=== PATIENT | male | born 1940 | race Caucasian/White ===

== ENCOUNTER 2016-09-05 07:56 | Emergency (ER) | payer OTHER ==
[2016-09-05 08:10] VITALS: BP 160/80
--- NOTE | 2016-09-05 08:29 | UC ---
Laceration HPI - HPI Summary HPI Summary: The patient comes in today for: 1. Laceration. Onset: 1 hour ago. Palliative/provocative: Touching makes it worse. Quality: No pain. Region: Top of head. Severity: 0/10 Time: Constant. Associated symptoms: LOC: None. Event: He had a cabinet door open and as he came up, the top of his head hit the cabinet door. Tetanus: 2 years ago. * - History Of Current Complaint Chief Complaint: UCLaceration Stated Complaint: HEAD LACERATION Time Seen by Provider: 09/05/16 08:24 Hx Obtained From: Patient - Allergies/Home Medications Allergies/Adverse Reactions: Allergies Allergy/AdvReac Type Severity Reaction Status Date / Time Ezetimibe [From Vytorin] Allergy Unknown Verified 09/05/16 08:12 Reaction Details Simvastatin [From Vytorin] Allergy Unknown Verified 09/05/16 08:12 Reaction Details PMH/Surg Hx/FS Hx/Imm Hx Previously Healthy: No - BPH, Mohs surgery right hand, right nose Endocrine History Of: Reports: Dyslipidemia Denies: Diabetes, Thyroid Disease, Hyperthyroidism, Hypothyroidism Cardiovascular History Of: Reports: Cardiac Disorders - HEART DISEASE W/ BYPASS SURGERY, Hypertension Denies: Pacemaker/ICD, Myocardial Infarction, Congestive Heart Failure, Atrial Fibrillation, Deep Vein Thrombosis, Bleeding Disorders Respiratory History Of: Denies: COPD, Asthma GI/ History Of: Reports: Gastroesophageal Reflux, Kidney Stones Denies: Ulcer, Gastrointestinal Bleed, Gall Bladder Disease, Diverticulitis, Renal Disease, Urosepsis Neurological History Of: Denies: TIA, CVA, Dementia, Seizures, Migraine Psychological History Of: Denies: Anxiety, Depression, Bipolar Disorder, Schizophrenia, Post Traumatic Stress Disorder Cancer History Of: Denies: Lung Cancer, Colorectal Cancer, Breast Cancer, Prostate Cancer, Cervical Cancer Other History Of: Anticoagulant Therapy - "Low dose aspirin every day." Negative For: HIV, Hepatitis B, Hepatitis C - Surgical History Surgical History: Yes Surgery Procedure, Year, and Place: cataract lens implant bilat 10/2011. quintuple bypass 05/09. 2 coronary stents 05/2002 - Family History Known Family History: Positive: Cardiac Disease - son Negative: Hypertension, Diabetes - Social History Occupation: Retired Alcohol Use: Rare Alcohol Amount: 1-2/day Substance Use Type: None Smoking Status (MU): Former Smoker Household Exposure Type: Cigarettes - Immunization History Most Recent Influenza Vaccination: 2016 Most Recent Tetanus Shot: 2014 Most Recent Pneumonia Vaccination: 2009 Review of Systems Constitutional: Negative Skin: Negative Eyes: Negative ENT: Negative Respiratory: Negative Cardiovascular: Negative Gastrointestinal: Negative Genitourinary: Negative Motor: Negative All Other Systems Reviewed And Are Negative: Yes Physical Exam Triage Information Reviewed: Yes Appearance: Well-Appearing, No Pain Distress, Well-Nourished Vital Signs: Initial Vital Signs Temp 97.7 F 09/05/16 08:06 Pulse 62 09/05/16 08:06 Resp 14 09/05/16 08:06 BP 160/80 09/05/16 08:06 Pulse Ox 99 09/05/16 08:06 Vital Signs Reviewed: Yes Eyes: Positive: Conjunctiva Clear. Negative: Discharge ENT: Positive: Hearing grossly normal. Negative: Pharyngeal erythema, Nasal congestion, Nasal drainage, TM bulging, TM dull, TM red, Tonsillar swelling, Tonsillar exudate Dental: Negative: Gross Decay/Caries @, Dental Fracture @ Neck: Positive: Supple, Nontender, No Lymphadenopathy. Negative: Nuchal Rigidity Respiratory: Positive: Lungs clear, No respiratory distress, No accessory muscle use. Negative: Crackles, Wheezing Cardiovascular: Positive: RRR, No Murmur Abdomen Description: Positive: Nontender, No Organomegaly, Soft. Negative: Distended, Guarding Musculoskeletal: Positive: Strength Intact, ROM Intact, No Edema Neurological: Positive: Alert, Muscle Tone Normal Psychological: Positive: Age Appropriate Behavior. Negative: Consolable Skin: Positive: Other - He has a 2 cm laceration on the top of his head. No active bleeding. Laceration Repair - Laceration Repair 1 Description: Linear Laceration Size After Repair: Length (cm) - 2, Width (mm) - 2, Depth (mm) - 2 Modified For Repair: No Closure Material: Skin Adhesive, SteriStrips Laceration Course/Dx - Course/Dx Course Of Treatment: Patient had laceration closed by skin adhesive and steristrips. - Differential Dx - Laceration/Wound Provider Diagnoses: Laceration of the top of the head. Discharge - Discharge Plan Condition: Stable Disposition: HOME Patient Education Materials: Laceration (ED), Skin Adhesive Care (ED), Steristrips (ED) Referrals: Jack Fitzgerald MD [Primary Care Provider] - 1 Week (Please see your primary care provider later next week to see how well you are doing and to check your blood pressure which was slightly high while in the office today.)
[2016-09-05] MEDS ORDERED: Benzoin Compound STICK ONE (08:54)
== END 2016-09-05 09:11 | disposition home or self-care (01) ==
LOC: UCEAST 07:56
DX: S01.91XA Laceration without foreign body of unspecified part of head, initial encounter (principal); E78.5 Hyperlipidemia, unspecified; I25.10 Atherosclerotic heart disease of native coronary artery without angina pectoris; Z95.1 Presence of aortocoronary bypass graft; I10 Essential (primary) hypertension; K21.9 Gastro-esophageal reflux disease without esophagitis; Z87.442 Personal history of urinary calculi; Z87.891 Personal history of nicotine dependence; W22.8XXA Striking against or struck by other objects, initial encounter; Y93.9 Activity, unspecified; Y92.9 Unspecified place or not applicable
CPT/HCPCS: 12001; 12011; 99211; 99212; G0463

== ENCOUNTER 2016-09-25 15:44 | Emergency (ER) | payer OTHER ==
[2016-09-25 16:21] VITALS: BP 146/73
--- NOTE | 2016-09-25 17:10 | UC ---
Ear Complaint HPI - HPI Summary HPI Summary: Has hearing aide part stuck in L ear, facility maintenance helper didn't want to remove it because it was too deep. Denies pain or drainage. - History of Current Complaint Chief Complaint: UCEar Stated Complaint: F.O. IN EAR Time Seen by Provider: 09/25/16 16:58 Hx Obtained From: Patient Onset/Duration: Sudden Onset Severity Initially: Mild Severity Currently: Mild Aggravating Factors: FB Associated Signs/Symptoms: Negative: Discharge, Hearing Loss, URI Symptoms - Allergies/Home Medications Allergies/Adverse Reactions: Allergies Allergy/AdvReac Type Severity Reaction Status Date / Time Ezetimibe [From Vytorin] Allergy Unknown Verified 09/25/16 16:22 Reaction Details Ramipril Allergy Unknown Verified 09/25/16 16:22 Reaction Details Simvastatin [From Vytorin] Allergy Unknown Verified 09/25/16 16:22 Reaction Details PMH/Surg Hx/FS Hx/Imm Hx Endocrine History Of: Reports: Dyslipidemia Denies: Diabetes, Thyroid Disease, Hyperthyroidism, Hypothyroidism Cardiovascular History Of: Reports: Cardiac Disorders, Hypertension Denies: Pacemaker/ICD, Myocardial Infarction, Congestive Heart Failure, Atrial Fibrillation, Deep Vein Thrombosis, Bleeding Disorders Respiratory History Of: Denies: COPD, Asthma GI/ History Of: Reports: Gastroesophageal Reflux, Kidney Stones Denies: Ulcer, Gastrointestinal Bleed, Gall Bladder Disease, Diverticulitis, Renal Disease, Urosepsis Neurological History Of: Denies: TIA, CVA, Dementia, Seizures, Migraine Psychological History Of: Denies: Anxiety, Depression, Bipolar Disorder, Schizophrenia, Post Traumatic Stress Disorder Cancer History Of: Denies: Lung Cancer, Colorectal Cancer, Breast Cancer, Prostate Cancer, Cervical Cancer Other History Of: Anticoagulant Therapy - "Low dose aspirin every day." Negative For: HIV, Hepatitis B, Hepatitis C - Surgical History Surgical History: Yes Surgery Procedure, Year, and Place: cataract lens implant bilat 10/2011. quintuple bypass 05/09. 2 coronary stents 05/2002 - Family History Known Family History: Positive: Cardiac Disease - son Negative: Hypertension, Diabetes - Social History Occupation: Retired Alcohol Use: Daily Alcohol Amount: 1-2/day Substance Use Type: None Smoking Status (MU): Former Smoker Household Exposure Type: Cigarettes - Immunization History Most Recent Influenza Vaccination: 2015 Most Recent Tetanus Shot: 2014 Most Recent Pneumonia Vaccination: 2009 Review of Systems Constitutional: Negative Skin: Negative Eyes: Negative ENT: Other - L ear FB Respiratory: Negative Cardiovascular: Negative Gastrointestinal: Negative Genitourinary: Negative Motor: Negative Neurovascular: Negative Musculoskeletal: Negative Neurological: Negative Psychological: Negative All Other Systems Reviewed And Are Negative: Yes Physical Exam Triage Information Reviewed: Yes Appearance: Well-Appearing, No Pain Distress, Well-Nourished Vital Signs: Initial Vital Signs Temp 98.2 F 09/25/16 16:15 Pulse 57 09/25/16 16:15 Resp 18 09/25/16 16:15 BP 146/73 09/25/16 16:15 Pulse Ox 98 09/25/16 16:15 Vital Signs Reviewed: Yes Eye Exam: Normal Eyes: Positive: Conjunctiva Clear ENT: Positive: Pharynx normal, TMs normal, Other: - soft rubber hearing aide part in L ear canal, removed with alligator forceps by HR INTERN on exam, pt marianne well.. Negative: Nasal congestion Dental Exam: Normal Neck exam: Normal Neck: Positive: Supple, Nontender Respiratory Exam: Normal Respiratory: Positive: Chest non-tender, Lungs clear, Normal breath sounds, No respiratory distress, No accessory muscle use Cardiovascular Exam: Normal Cardiovascular: Positive: RRR, No Murmur Musculoskeletal Exam: Normal Neurological Exam: Normal Neurological: Positive: Alert Psychological Exam: Normal Skin Exam: Normal Ear Complaint Course/Dx - Differential Dx/Diagnosis Provider Diagnoses: L ear FB removal Discharge - Discharge Plan Condition: Stable Disposition: HOME Patient Education Materials: Ear Foreign Body (ED) Referrals: Jack Fitzgerald MD [Primary Care Provider] - Additional Instructions: You should have no ongoing problems now that the hearing aide part is out of your ear. Please come back if you develop pain or drainage from the ear.
== END 2016-09-25 17:15 | disposition home or self-care (01) ==
LOC: UCEAST 15:44
DX: T16.2XXA Foreign body in left ear, initial encounter (principal); X58.XXXA Exposure to other specified factors, initial encounter; Y93.9 Activity, unspecified; Y92.9 Unspecified place or not applicable; E78.5 Hyperlipidemia, unspecified; I10 Essential (primary) hypertension; K21.9 Gastro-esophageal reflux disease without esophagitis; Z87.442 Personal history of urinary calculi; Z79.82 Long term (current) use of aspirin; Z98.42 Cataract extraction status, left eye; Z98.41 Cataract extraction status, right eye; Z95.5 Presence of coronary angioplasty implant and graft; Z95.1 Presence of aortocoronary bypass graft; Z87.891 Personal history of nicotine dependence
CPT/HCPCS: 99211; G0463

== ENCOUNTER 2018-12-06 07:10 | Emergency (ER) | payer OTHER ==
[2018-12-06 08:06] VITALS: BP 163/79
--- NOTE | 2018-12-06 08:25 | UC ---
Complaint Male HPI - HPI Summary HPI Summary: 1 WEEK OF LEFT FLANK PAIN AND LEFT GROIN PAIN. ONSET AFTER PLAYING A DOUBLE- HEADER SOFTBALL GAME. ALSO REPORTS A FEW DAYS OF A RED RASH IN HIS LEFT GROIN. DENIES DYSURIA OR URGENCY. HAS FREQUENCY BUT THAT IS BASELINE GIVEN HE HAS A HISTORY OF AN ENLARGED PROSTATE. FOLLOWED BY DR. LOU WITH UROLOGY. - History of Current Complaint Chief Complaint: UCGeneralIllness Stated Complaint: HIP/BACKPAIN Time Seen by Provider: 12/06/18 07:26 Hx Obtained From: Patient Onset/Duration: Gradual Onset, Lasting Days, Still Present Timing: Constant Severity Initially: Moderate Severity Currently: Moderate Pain Intensity: 8 Pain Scale Used: 0-10 Numeric Location: Groin Character: Sharp Aggravating Factor(s): Nothing Alleviating Factor(s): Nothing Associated Signs And Symptoms: Positive: Back Pain. Negative: Fever, Nausea - Allergies/Home Medications Allergies/Adverse Reactions: Allergies Allergy/AdvReac Type Severity Reaction Status Date / Time ezetimibe [From Vytorin] Allergy unk Verified 12/06/18 07:16 ramipril Allergy unk Verified 12/06/18 07:16 simvastatin [From Vytorin] Allergy unk Verified 12/06/18 07:16 PMH/Surg Hx/FS Hx/Imm Hx Cardiovascular History: Cardiac Disease - 5V CABG, STENTS X2, Hypertension Other History Of: Anticoagulant Therapy - "Low dose aspirin every day." Negative For: HIV, Hepatitis B, Hepatitis C - Surgical History Surgical History: Yes Surgery Procedure, Year, and Place: cataract lens implant bilat 10/2011. quintuple bypass 05/09. 2 coronary stents 05/2002 - Family History Known Family History: Positive: Cardiac Disease - son Negative: Hypertension, Diabetes - Social History Alcohol Use: None Alcohol Amount: 1-2/day Substance Use Type: None Smoking Status (MU): Former Smoker Household Exposure Type: Cigarettes - Immunization History Most Recent Influenza Vaccination: 2015 Most Recent Tetanus Shot: 2014 Most Recent Pneumonia Vaccination: 2008 Review of Systems All Other Systems Reviewed And Are Negative: Yes Constitutional: Positive: Negative Skin: Positive: Rash Respiratory: Positive: Negative Cardiovascular: Positive: Negative Gastrointestinal: Positive: Negative Genitourinary: Negative: Dysuria, Urgency Physical Exam Triage Information Reviewed: Yes Appearance: Well-Appearing, No Pain Distress, Well-Nourished Vital Signs: Initial Vital Signs Temp 98 F 12/06/18 07:18 Pulse 70 12/06/18 07:18 Resp 16 12/06/18 07:18 BP 163/79 12/06/18 07:18 Pulse Ox 99 12/06/18 07:18 Laboratory Tests 12/06/18 07:34 POC Urine Color Yellow POC Urine Clarity Clear POC Urine pH 6.0 POC Ur Specif [place] 1.010 POC Urine Protein Negative POC Ur Glucose (UA) Negative POC Urine Ketones Trace A POC Urine Blood Trace-lysed A POC Urine Nitrite Negative POC Urine Bilirubin Negative POC Urine Urobilinogen 0.2 POC U Leukocyte Esteras Negative Vital Signs Reviewed: Yes Eyes: Positive: Conjunctiva Clear ENT: Positive: Hearing grossly normal Neck: Positive: Supple Respiratory: Positive: No respiratory distress, No accessory muscle use Cardiovascular: Positive: Pulses Normal Abdomen Description: Positive: Nontender, Soft. Negative: CVA Tenderness (R), CVA Tenderness (L), Distended, Guarding Musculoskeletal: Positive: No Edema Neurological: Positive: Alert Psychological: Positive: Age Appropriate Behavior Skin: Positive: Rashes - ERYTHEMATOUS RASH LEFT GROIN WITH CLUSTERS OF VESICLES. NO DRAINAGE. NONTENDER. Diagnostics - Radiology CT ABD/PELVIS W/O CONTRAST Radiology Interpretation Completed By: Radiologist Summary of Radiographic Findings: 1. NO HYDRONEPHROSIS OR NEPHROLITHIASIS. 2. ENLARGED PROSTATE WITH INTRALUMINAL EXTENSION OF THE BLADDER. 3. ATHEROSCLEROSIS. Complaint Male Course/Dx - Course Course Of Treatment: PATIENT PRESENTS WITH PAIN IN THE LEFT GROIN/HIP. NO CHANGE IN HIS URINARY SYMPTOMS. PATIENT HAS FREQUENCY AT BASELINE DUE TO HIS ENLARGED PROSTATE WHICH IS FOLLOWED BY UROLOGY. HE HAS HAD A REMOTE HISTORY OF KIDNEY STONES AND IS CONCERNED HE MAY HAVE ANOTHER ONE. URINE DIP HAD TRACE BLOOD AND KETONES. CT SCAN OBTAINED AND WAS NEGATIVE FOR STONE. NO FINDINGS TO EXPLAIN HIS SYMPTOMS. PATIENT ON EXAM IS FOUND TO HAVE A VESICULAR, ERYTHEMATOUS RASH IN HIS LEFT GROIN IN THE L1 DISTRIBUTION. CLINICALLY CONSISTENT WITH SHINGLES. PATIENTS DISCOMFORT IS LIKELY DUE TO THIS OUTBREAK. WILL COVER WITH VALTREX 3 TIMES DAILY FOR 7 DAYS. HE WILL TAKE TYLENOL NEEDED FOR DISCOMFORT. TYLENOL NO. 3 FOR BREAKTHROUGH. IF HIS SYMPTOMS DO NOT IMPROVE HE WILL FOLLOW-UP WITH HIS PCP DR. ORLANDO. DIGITAL SALES MANAGER #: [id number] AND IS UNREMARKABLE. - Differential Dx/Diagnosis Provider Diagnosis: Shingles Discharge - Sign-Out/Discharge Documenting (check all that apply): Patient Departure All imaging exams completed and their final reports reviewed: Yes - Discharge Plan Condition: Stable Disposition: HOME Prescriptions: Acetaminop/Codeine 30 MG TAB* [Tylenol/Codeine 30 MG TAB*] 1 - 2 tab PO Q6H PRN #20 tab MDD 8 PRN Reason: Pain Valacyclovir HCl [Valacyclovir] 1,000 mg PO TID #21 tablet Patient Education Materials: Shingles (ED) Referrals: Shahana Orlando MD [Primary Care Provider] - If Needed Additional Instructions: CT SCAN SHOWS: 1. NO HYDRONEPHROSIS OR NEPHROLITHIASIS. 2. ENLARGED PROSTATE WITH INTRALUMINAL EXTENSION OF THE BLADDER. 3. ATHEROSCLEROSIS. NOTHING ON THIS REPORT EXPLAINS YOUR DISCOMFORT. YOUR URINE TEST HAD A TRACE AMOUNT OF BLOOD AND KETONES. I WOULD FOLLOW THIS UP WITH YOUR UROLOGIST. NO EVIDENCE OF URINARY TRACT INFECTION. YOUR RASH IS CONSISTENT IN APPEARANCE WITH SHINGLES. THE DISCOMFORT YOU ARE FEELING IN YOUR GROIN AND HIP AREA IS LIKELY DUE TO REACTIVATION OF THIS VIRUS. TAKE THE VALACYCLOVIR 3 TIMES DAILY FOR THE FULL 7 DAYS. TYLENOL NEEDED FOR DISCOMFORT. TYLENOL/CODEINE FOR BREAKTHROUGH. BE SURE TO MONITOR YOUR ACETAMINOPHEN INTAKE AND AVOID TAKING MORE THAN 3 GRAMS IN A 24-HOUR PERIOD. - Billing Disposition and Condition Condition: STABLE Disposition: Home
== END 2018-12-06 10:18 | disposition home or self-care (01) ==
LOC: UCEAST 07:10
DX: B02.9 Zoster without complications (principal); Z87.891 Personal history of nicotine dependence; Z95.1 Presence of aortocoronary bypass graft
CPT/HCPCS: 74176; 81003; 99212; G0463

== ENCOUNTER 2019-01-13 10:24 | Emergency (ER) | payer OTHER ==
[2019-01-13 10:35] VITALS: BP 128/72
--- NOTE | 2019-01-13 11:44 | UC ---
Ear Complaint HPI - HPI Summary HPI Summary: 78-year-old male presents with foreign body in left ear. Patient noticed a piece of plastic from his hearing aid was in his left ear. This happened before and was easily removed. Patient denies pain. Patient tried to get out at home but was unable to. - History of Current Complaint Chief Complaint: UCEar Stated Complaint: FOREIGN BODY LODGED IN EAR Time Seen by Provider: 01/13/19 11:16 Pain Intensity: 0 - Allergies/Home Medications Allergies/Adverse Reactions: Allergies Allergy/AdvReac Type Severity Reaction Status Date / Time ezetimibe [From Vytorin] Allergy unk Verified 12/06/18 07:16 ramipril Allergy unk Verified 12/06/18 07:16 simvastatin [From Vytorin] Allergy unk Verified 12/06/18 07:16 Home Medications: Home Medications Gabapentin 200 mg PO TID 01/13/19 [History Confirmed 01/13/19] PMH/Surg Hx/FS Hx/Imm Hx Previously Healthy: Yes Other History Of: Anticoagulant Therapy - "Low dose aspirin every day." Negative For: HIV, Hepatitis B, Hepatitis C - Surgical History Surgical History: Yes Surgery Procedure, Year, and Place: cataract lens implant bilat 10/2011. quintuple bypass 05/09. 2 coronary stents 05/2002 - Family History Known Family History: Positive: Cardiac Disease - son Negative: Hypertension, Diabetes - Social History Alcohol Use: None Alcohol Amount: 1-2/day Substance Use Type: None Smoking Status (MU): Former Smoker Household Exposure Type: Cigarettes - Immunization History Most Recent Influenza Vaccination: 2015 Most Recent Tetanus Shot: 2014 Most Recent Pneumonia Vaccination: 2008 Review of Systems All Other Systems Reviewed And Are Negative: Yes ENT: Positive: Other - FB L ear Physical Exam - Summary Physical Exam Summary: General: Well appearing, no distress HEENT: Left ear canal with a soft piece of plastic Cardiovascular: Skin is well perfused Pulmonary: No respiratory distress, no tachypnea Abdomen: Non-distended Skin: Warm, pink, dry MSK: no edema Psych: Normal affect Neuro: A&Ox3 Vital Signs: Initial Vital Signs Temp 36.6 C 01/13/19 10:32 Pulse 56 01/13/19 10:32 Resp 16 01/13/19 10:32 BP 128/72 01/13/19 10:32 Pulse Ox 100 01/13/19 10:32 Procedures - Procedure Summary Procedure Summary: Foreign body removal left ear Visualized using speculum, able to remove soft piece of plastic from inner ear canal with alligator forceps. Patient tolerated procedure well. No erythema in the canal or trauma to the tympanic membrane. Ear Complaint Course/Dx - Course Course Of Treatment: 78-year-old male presents with foreign body in left ear from hearing aid. Visualized the soft plastic piece of the foreign body, able to remove w alligator forceps. No trauma to the ear drum - Differential Dx/Diagnosis Provider Diagnosis: Foreign body of ear, left Discharge - Sign-Out/Discharge Documenting (check all that apply): Patient Departure All imaging exams completed and their final reports reviewed: No Studies - Discharge Plan Condition: Stable Disposition: HOME Patient Education Materials: Ear Foreign Body (ED) Referrals: Shahana Norman MD [Primary Care Provider] - Additional Instructions: You were seen at at urgent care for foreign body in her left ear. We were able to remove it. - Billing Disposition and Condition Condition: STABLE Disposition: Home
--- OUTSIDE RECORDS SUMMARY | 2019-01-13 15:14 | XMS REPORT | Continuity of Care Document ---
:1940 External Reference #:[id number] Author Name Shahana Norman MD Address [address] [place] [id number] Care Team Providers Name Role Phone Shahana Norman MD FACP - Care Team Information [employer] [phone] Internal Medicine Red Garcia MD - Cardiovascular Care Team Information [employer] Disease Problems Active Problems Provider Date Non-toxic multinodular goiter Shahana Norman MD Onset: 12/27/2017 Degenerative joint disease involving multiple Shahana Norman MD Onset: joints Impaired fasting glycaemia Shahana Norman MD Onset: 07/15/2017 Gastroesophageal reflux disease Shahana Norman MD Onset: 06/02/2017 Obstructive sleep apnea syndrome Shahana Norman MD Onset: 06/02/2017 Psychogenic impotence Shahana Norman MD Onset: 06/02/2017 Benign prostatic hypertrophy with outflow Shahana Norman MD Onset: 2017 obstruction Multi vessel coronary artery disease Shahana Norman MD Onset: 06/02/2017 Essential hypertension Shahana Norman MD Onset: 06/02/2017 Mixed hyperlipidemia Shahana Norman MD Onset: 06/02/2017 Social History Type Date Description Comments Sex Unknown ETOH Use Occasionally consumes alcohol ETOH Use Drinks 4 Alcoholic Beverages Per Week ETOH Use consumed 3-4 beers per week ETOH Use Occasionally consumed liquor in the past Tobacco Use Start: Unknown End: Patient is a former smoker Smoking Status Reviewed: 06/02/17 Patient is a former smoker Exercise Exercises regularly 30-45 minutes walk Type/Frequency daily. Soft ball in Summer, weight, balance exercises and aerobics. Guns in Home No Allergies, Adverse Reactions, Alerts Description No Known Drug Allergies Medications Active Medications SIG Qnty Indications Ordering Provider Date Gabapentin take 1 capsule 90caps B02.9 Harkins A 12/14/2018 300mg Capsules by mouth 3 times MD Ester per day for nerve disease Acetaminophen-Codeine B02.9 Unknown 12/06/2018 #3 300-30mg Tablets Icaps Areds 2 Unknown 05/31/2017 2 Capsules Amlodipine Besylate once daily I10 Red Garcia, 05/31/2003 5mg MD Tablets Rosuvastatin Calcium once daily I25.10 Red Garcia, 05/31/2003 5mg MD Tablets E78.2 Coq-10 200mg once daily Unknown 05/31/2003 Capsules Cpap G47.33 Unknown 05/31/2003 Tamsulosin HCL once daily N40.1 Juan Burger MD 05/31/1999 0.4mg Capsules Viagra 100mg As needed F52.21 Unknown 05/31/1999 Tablets Aspirin Adult Low Strength once daily I25.10 Unknown 05/31/[address] History Medications Valacyclovir HCL 1gm B02.9 Unknown 12/06/2018 - 11/2018 Tablets Immunizations CPT Code Status Date Vaccine Lot # [id number] Given 02/18/2018 Influenza Virus Vaccine, Quadrivalent ([id number]), Derived From Cell [id number] Given 02/18/2018 Influenza Vaccine Quadrivalent Preser/Antibiotic Free [place] Use [address] Given 03/02/2017 Influenza Vaccine Quadrivalent Preser/Antibiotic Free [place] Use 96804 Given 09/10/2015 Pneumococcal Vaccine 2Yrs Or Older 11336 Given 11/01/2014 Tdap-Tetanus, Diphtheria Toxoids/Acellular Pertussis Vaccine 7+ [id number] Given 08/07/2013 Pneumococcal Vaccine 2Yrs Or Older 10915 Given 07/07/2006 Zoster Shingles Vaccine For Subcutaneous Injection Vital Signs Date Vital Result Comment 01/04/2019 10:13am Heart Rate 68 /min BP Systolic 135 mmHg BP Diastolic 75 mmHg Weight 153.00 lb 12/21/2018 2:23pm Body Temperature 98.2 F Results Test Date Facility Test Result H/L Range Note CBC No Diff 12/30/2018 [facility] White Blood 4.1 10^3/uL Normal 3.5-10.8 [place] [address] Count [phone] Red Blood Count 4.53 10^6/uL Normal 4.18-5.48 Hemoglobin 13.9 g/dL Low 14.0-18.0 Hematocrit 42 % Normal 42-52 Mean Corpuscular Volume 92 fL Normal 80-94 Mean Corpuscular Hemoglobin 31 pg Normal 27-31 Mean Corpuscular HGB Conc 34 g/dL Normal 31-36 Red Cell Distribution Width 14 % Normal 10-15 Platelet Count 191 10^3/uL Normal 150-450 Mean Platelet Volume 8.9 fL Normal 7.4-10.4 Basic Metabolic 12/30/2018 [facility] Sodium 137 mmol/L Normal 135-145 [place] [address] [phone] Potassium 5.0 mmol/L Normal 3.5-5.0 Chloride 105 mmol/L Normal 101-111 Co2 Carbon Dioxide 28 mmol/L Normal 22-32 Anion Gap 4 mmol/L Normal 2-11 Glucose 111 mg/dL High 70-100 Blood Urea Nitrogen 19 mg/dL Normal 6-24 Creatinine 0.86 mg/dL Normal 0.67-1.17 BUN/Creatinine Ratio 22.1 High 8-20 Calcium 9.7 mg/dL Normal 8.6-10.3 Egfr Non- 86.5 >60 Egfr 104.6 >60 1 Laboratory test 12/30/2018 [facility] Hemoglobin A1c 6.2 % High 4.0-5.6 2 [place] [address] (Glyco HGB) [phone] TSH (Thyroid Stim Horm) 1.80 mcIU/mL Normal 0.34-5.60 3 Poc Urinalysis 12/06/2018 [facility] Poc Glucose, [place] [address] Urine [phone] Poc Bilirubin, Urine Negative Negative Poc Ketone, Urine Trace Abnormal Negative Poc Specific [place], Urine 1.010 Normal 1.010-1.030 Poc Blood, Urine Trace-lysed Abnormal Negative Poc pH, Urine 6.0 Normal 5-9 Poc Protein, Urine Negative Negative Poc Urobilinogen, Urine 0.2 Negative Poc Nitrite, Urine Negative Negative Poc Leukocytes, Urine Negative Negative Poc Color, Urine Yellow Poc Clarity, Urine Clear 4 CBC Auto 10/07/2018 [facility] White Blood 3.8 10^3/uL Normal 3.5-10.8 [place] [address] Count [phone] Red Blood Count 4.49 10^6/uL Normal 4.18-5.48 Hemoglobin 13.7 g/dL Low 14.0-18.0 Hematocrit 41 % Low 42-52 Mean Corpuscular Volume 92 fL Normal 80-94 Mean Corpuscular Hemoglobin 30 pg Normal 27-31 Mean Corpuscular HGB Conc 33 g/dL Normal 31-36 Red Cell Distribution Width 14 % Normal 10.5-15 Platelet Count 228 10^3/uL Normal 150-450 Mean Platelet Volume 8.6 fL Normal 7.4-10.4 Abs Neutrophils 2.0 10^3/uL Normal 1.5-7.7 Abs Lymphocytes 1.3 10^3/uL Normal 1.0-4.8 Abs Monocytes 0.5 10^3/uL Normal 0-0.8 Abs Eosinophils 0.0 10^3/uL Normal 0-0.6 Abs Basophils 0.0 10^3/uL Normal 0-0.2 Abs Nucleated RBC 0.0 10^3/uL Granulocyte % 53.3 % Lymphocyte % 33.2 % Monocyte % 12.3 % Eosinophil % 0.7 % Basophil % 0.5 % Nucleated Red Blood Cells % 0.2 Laboratory test 10/07/2018 [facility] Ferritin 127.9 ng/mL Normal 24-336 [place] [address] [phone] TSH (Thyroid Stim Horm) 2.10 mcIU/mL Normal 0.34-5.60 Laboratory 09/19/2018 [facility] PSA Diagnostic 4.101 High 0- 4.0 5 [place] [address] ng/mL [phone] Stool Occult 08/22/2018 [facility] Stool Occult SEE 6, 7 Blood, [place] [address] Blood, Screen RESULT [phone] BELOW CBC Auto Diff 08/02/2018 [facility] White Blood 5.6 Normal 3.5 -10.8 [place] [address] Count 10^3/uL [phone] Red Blood Count 4.44 10^6/uL Normal 4.00-5.40 Hemoglobin 13.5 g/dL Low 14.0-18.0 Hematocrit 41 % Low 42-52 Mean Corpuscular Volume 92 fL Normal 80-94 Mean Corpuscular Hemoglobin 30 pg Normal 27-31 Mean Corpuscular HGB Conc 33 g/dL Normal 31-36 Red Cell Distribution Width 13 % Normal 10.5-15 Platelet Count 225 10^3/uL Normal 150-450 Mean Platelet Volume 8.5 fL Normal 7.4-10.4 Abs Neutrophils 3.2 10^3/uL Normal 1.5-7.7 Abs Lymphocytes 1.8 10^3/uL Normal 1.0-4.8 Abs Monocytes 0.6 10^3/uL Normal 0-0.8 Abs Eosinophils 0 10^3/uL Normal 0-0.6 Abs Basophils 0 10^3/uL Normal 0-0.2 Abs Nucleated RBC 0 10^3/uL Granulocyte % 56.8 % Lymphocyte % 32.0 % Monocyte % 10.6 % Eosinophil % 0.4 % Basophil % 0.2 % Nucleated Red Blood Cells % 0 Laboratory test 08/02/2018 [facility] Ferritin 154.0 ng/mL Normal 24-336 [place] [address] [phone] Iron & Iron 08/02/2018 [facility] Iron 105 g/dL Normal 50- 212 [place] [address] [phone] Unsaturated Iron Binding < 335 g/dL Total Iron Binding Capacity 350 g/dL Normal 250-450 Transferrin 250 mg/dL Normal 203-362 % Iron Saturation 30 % Normal 15-55 Laboratory test 08/02/2018 [facility] Vitamin B12 335 pg/mL Normal 180-914 8 [place] [address] [phone] 1 Because ethnic data is not always readily available, this report includes an eGFR for both -Americans and non- Americans. The National Kidney Disease Education Program (NKDEP) does not endorse the use of the MDRD equation for patients that are not between the ages of 18 and 70, are , have extremes of body size, muscle mass, or nutritional status, or are non- or non-. According to the National Kidney Foundation, irrespective of diagnosis, the stage of the disease is based on the level of kidney function: Stage Description GFR(mL/min/1.73 m(2)) 1 Kidney damage with normal or decreased GFR 90 2 Kidney damage with mild decrease in GFR 60-89 3 Moderate decrease in GFR 30-59 4 Severe decrease in GFR 15-29 5 Kidney failure <15 (or dialysis) 2 Therapeutic target for the treatment of diabetes mellitus patients is <7% HBA1C, and in selective patients <6.0%. Please refer to [place] Diabetes Association diabetic care guidelines for further information. 3 FASTING 4 Emergency Dispatcher: [id number] 5 Serum levels of PSA measured using the [employer] DXI Hybritech immunoassay should not be interpreted as absolute evidence of the presence or absence of disease. The PSA value should be used in conjunction with other pertinent clinical diagnostic procedures. The values obtained with different assay methods or kits cannot be used interchangeably. 6 [id number] 7 SEE RESULT BELOW Name: MÓNICA MELISSA : [address]: Shahana Norman MD Acct: [id number] Unit: [id number] AGE: 77 Location: [facility] Re08/22/18 SEX: M Status: REG REF SPEC: [id number] [place]: 08/22/[address]: Shahana Norman MD REQ: [id number] RECD: 08/22/18 STATUS: COMP _ SOURCE: STOOL SPDESC: ORDERED: Occult Bl, Scn COMMENTS: [id number] Procedure Result Reported Site Stool Occult Blood (1) Final 08/22/18- 1242 ML Stool Occult Blood Negative Collection Date (1) 08/20/18 Stool Occult Blood (2) Final 08/22/18- 1242 ML Stool Occult Blood Negative Collection Date (2) 08/21/18 Stool Occult Blood (3) Final 08/22/18- 1242 ML Stool Occult Blood Negative Collection Date (3) 08/22/18 * ML - Main Lab . END OF REPORT DEPARTMENT OF PATHOLOGY, [address] [place] [address] Irving Ortiz M.D. Director [facility] # [id number] Normal Range 180 to 914 Indeterminate Range 145 to 180 Deficient Range <145 Procedures Date Code Description Status 01/04/2017 09662628 Colonoscopy Completed 09/18/2016 [id number] Colonoscopy Completed 01/06/2007 [id number] Colonoscopy Completed Medical Devices Description No Information Available Encounters Type Date Location Provider Dx Diagnosis Office Visit 01/04/2019 Main Office Shahana Norman, I25.10 Athscl heart 10:00a disease of [place] coronary artery w/o ang pctrs I10 Essential (primary) hypertension E04.2 Nontoxic multinodular goiter R73.01 Impaired fasting glucose B02.9 Zoster without complications Office Visit 12/21/2018 2:20p Main Office Shahana Arshad B02.9 Zoster without MD Ester complications Assessments Date Code Description Provider 01/04/2019 I25.10 Atherosclerotic heart disease of [place] Shahana Norman MD coronary artery with 01/04/2019 I10 Essential (primary) hypertension Shahana Norman MD 01/04/2019 E04.2 Nontoxic multinodular goiter Shahana Norman MD 01/04/2019 R73.01 Impaired fasting glucose Shahana Norman MD 01/04/2019 B02.9 Zoster without complications Shahana Norman MD 12/21/2018 B02.9 Zoster without complications Shahana Norman MD Plan of Treatment Future Appointment(s):07/10/2019 10:00 am - Shahana Norman MD at Main [id number]/04/2019 - Shahana Norman MDI25.10 Atherosclerotic heart disease of [place] coronary artery withComments:Clinically stable. Continue recommended plan of care. Follow up recommendations discussed. Encouraged to continue efforts related to modification of life style.I10 Essential (primary) hypertensionComments:Clinically stable. Continue recommended plan of care. Follow up recommendations discussed. Encouraged to continue efforts related to modification of life style.E04.2 Nontoxic multinodular goiterComments: Clinically stable. Continue recommended plan of care. Follow up recommendations discussed. Encouraged to continue efforts related to modification of life style.R73.01 Impaired fasting glucoseComments:Lifestyle and dietary modifications advised.B02.9 Zoster without complicationsComments:Advised dose reduction after 01/14 and gradual d/c after 1 month of change.AllFollow up:6M for annual phy with labs. Functional Status Functional Condition Comment Date Status Glasses readers Active Hearing Aid in Both ears Active Mental Status Mental Condition Comment Date Status None Active Referrals Description No Information Available
--- OUTSIDE RECORDS SUMMARY | 2019-01-13 15:14 | XMS REPORT | Continuity of Care Document ---
:1940 External Reference #:[id number] Author Name Red Garcia M.D. (transmitted by agent of provider Chanell Pierre) Address [address] [place] [address] [address] [place] [address] Care Team Providers Name Role Phone Shahana Norman MD - Internal Care Team Information [employer] Medicine Problems Active Problems Provider Date Coronary arteriosclerosis Red Garcia M.D. Onset: 02/19/2012 Essential hypertension Red Garcia M.D. Onset: 02/19/2012 Pure hypercholesterolemia Red Garcia M.D. Onset: 02/19/2012 Benign essential hypertension Red Garcia M.D. Onset: 03/23/2013 Idiopathic stabbing headache Cira Schultz NP Onset: 07/11/2014 Disorder of lung Lacie Whitaker MD Onset: 11/21/2014 Social History Type Date Description Comments Sex Unknown ETOH Use Rarely consumes alcohol Recreational Drug Use Denies Drug Use Tobacco Use Start: Unknown End: Patient is a former Unknown smoker Tobacco Use Start: Unknown End: Patient is a former quit 1970 Unknown smoker Smoking Status Reviewed: 01/12/19 Patient is a former quit 1970 smoker Enjoy Exercising Enjoys exercising Exercise Type/Frequency Exercises regularly active lifestyle Allergies, Adverse Reactions, Alerts Active Allergies Reaction Severity Comments Date Vytorin leg pain/weakness 02/19/2012 Zocor Leg pain/Weakness 02/19/2012 Altace cough gi upset, decreased sex function 09/19/2012 Medications Active Medications SIG Qnty Indications Ordering Date Provider Crestor 1 by mouth every 90tabs Red Cherry 09/17/2014 5mg Tablets day Millie Garcia Amlodipine Besylate 1 by mouth every 90tabs I10 Red Cherry 01/04/2014 day Millie Garcia 5mg Tablets Viagra po 0.5 or 1 tab 1h 10tabs Other Ordering 12/02/2012 100mg Tablets before intercourse Provider Aspirin 1 po qd Unknown 81mg Tablets Tamsulosin HCL 1 po qd 30caps Unknown 0.4mg Capsules Tums prn Unknown Coq10 1 by mouth every Unknown 200mg Capsules day Preservision Areds 2 1 by mouth twice Unknown per day Areds 2 Chewtabs Gabapentin 1 by mouth three Unknown 300mg times a day Capsules Medications Administered in Office Medication SIG Qnty Indications Ordering Provider Date Technetium TC 99M Carroll Renteria, DO FAC 03/08/2017 Tetrofosmin, Per Unit Dose Up To 40 Millicuries Injection Immunizations CPT Code Status Date Vaccine Lot # [id number] Given 11/21/2014 Fluvirin Im 3Yrs And Older Vital Signs Date Vital Result Comment 01/12/2019 12:58pm Height 65 inches 5'5" Weight 151.00 lb with shoes Heart Rate 78 /min right radial BP Systolic Sitting 132 mmHg Rue reg cuff BP Diastolic Sitting 80 mmHg Rue reg cuff BP Systolic Standing 130 mmHg Rue reg cuff BP Diastolic Standing 80 mmHg Rue reg cuff BMI (Body Mass Index) 25.1 kg/m2 Ejection Fraction 50-55% 08/12/17 12/30/2017 2:48pm Height 65 inches 5'5" Weight 149.00 lb Heart Rate 64 /min BP Systolic Sitting 132 mmHg Lue reg cuff BP Diastolic Sitting 86 mmHg Lue reg cuff BP Systolic Standing 124 mmHg Lue BP Diastolic Standing 80 mmHg Lue Respiratory Rate 16 /min BMI (Body Mass Index) 24.8 kg/m2 Ejection Fraction 50-55% 08/12/17 Results Test Date Facility Test Result H/L Range Note CBC No Diff 12/30/2018 [facility] White Blood 4.1 10^3/uL Normal 3.5-10.[address] [place] [address] [phone] Red Blood Count 4.53 10^6/uL Normal 4.18-5.48 Hemoglobin 13.9 g/dL Low 14.0-18.0 Hematocrit 42 % Normal 42-52 Mean Corpuscular Volume 92 fL Normal 80-94 Mean Corpuscular Hemoglobin 31 pg Normal 27-31 Mean Corpuscular HGB Conc 34 g/dL Normal 31-36 Red Cell Distribution Width 14 % Normal 10-15 Platelet Count 191 10^3/uL Normal 150-450 Mean Platelet Volume 8.9 fL Normal 7.4-10.4 Basic Metabolic 12/30/2018 [facility] Sodium 137 mmol/L Normal 135-[address] [place] [address] [phone] Potassium 5.0 mmol/L Normal 3.5-5.0 Chloride 105 mmol/L Normal 101-111 Co2 Carbon Dioxide 28 mmol/L Normal 22-32 Anion Gap 4 mmol/L Normal 2-11 Glucose 111 mg/dL High 70-100 Blood Urea Nitrogen 19 mg/dL Normal 6-24 Creatinine 0.86 mg/dL Normal 0.67-1.17 BUN/Creatinine Ratio 22.1 High 8-20 Calcium 9.7 mg/dL Normal 8.6-10.3 Egfr Non- 86.5 >60 Egfr 104.6 >60 1 Laboratory 12/30/2018 [facility] TSH (Thyroid 1.80 Normal 0.34 -5.60 2 test finding [address] Stim Horm) mcIU/[place] [address] [phone] Hemoglobin A1c (Glyco HGB) 6.2 % High 4.0-5.6 3 1 Because ethnic data is not always [...] 5 Kidney failure <15 (or dialysis) 2 FASTING 3 Therapeutic target for the treatment of diabetes mellitus patients is <7% HBA1C, and in selective patients <6.0%. Please refer to [place] Diabetes Association diabetic care guidelines for further information. Procedures Date Code Description Status 01/12/2019 91049 EKG Tracing & Interpretation Completed Medical Devices Description No Information Available Encounters Description No Information Available Assessments Date Code Description Provider 01/12/2019 I25.10 Atherosclerotic heart disease of [place] Red Garcia M.D. coronary artery without angina pectoris 01/12/2019 I10 Essential (primary) hypertension Red Garcia M.D. 01/12/2019 E78.00 Pure hypercholesterolemia, unspecified Red Garcia M.D. Plan of Treatment 01/12/2019 - Red Garcia M.D.I25.10 Atherosclerotic heart disease of [place] coronary artery without angina pectorisFollow up:ov 10 mI10 Essential ( primary) ujaugrlptjlaY35.00 Pure hypercholesterolemia, unspecifiedNew Labs: Lipid Panel - [facility], Ordered: 01/12/19 Functional Status Description No Information Available Mental Status Description No Information Available Referrals Description No Information Available
--- OUTSIDE RECORDS SUMMARY | 2019-01-13 15:15 | XMS REPORT | Continuity of Care Document ---
:1940 External Reference #:[id number] Author Name Shahana Norman MD Address [address] [place] [address] Care Team Providers Name Role Phone Shahana Norman MD FACP Care Team Information Library Paraprofessional Unavailable Shahana Norman MD FACP Primary Care Physician Unavailable Payers Date Identification Numbers Payment Provider Subscriber Policy Number: [id number] [facility] Balbir Mónica Melissa Group Number: [id number] [address] PayID: [id number] [place] [address] Problems Active Problems Provider Date Non-toxic multinodular [...] Mixed hyperlipidemia Shahana Norman MD Onset: 06/02/2017 Family History Date Family Member(s) Observation Comments General Defects heart defect, son General Alcoholism father General Breast Cancer Mother General Prostate Cancer brother General Skin Cancer myself,brother General Testicular Cancer son General Alzheimer's Disease mother General Benign Prostatic Hypertrophy myself,brothers General Congestive Heart Failure (CHF) father,brother General Coronary Artery Disease (CAD) myself,brothers General Enlarged Prostate myself,brothers General Diabetes son Social History Type Date Description Comments Sex Unknown Marital Status Occupation 2003 Retired [employer] Learning Barriers None ETOH Use Occasionally consumes alcohol ETOH Use [...] exercises and aerobics. Guns in Home No Currently Active Patient is currently sexually active Condom Use Never STD's No STD History Allergies, Adverse Reactions, Alerts Description No Known Drug Allergies Medications Active Medications SIG Qnty Indications Ordering Date Provider Gabapentin take 1 capsule by 90caps B02.9 Harkins A 12/14/2018 300mg mouth 3 times per MD Ester Capsules day for nerve disease Valacyclovir HCL B02.9 Unknown 12/06/2018 1gm Tablets Acetaminophen-Codein B02.9 Unknown 12/06/2018 e #3 300-30mg Tablets Shingrix one intramuscular 1units Z00.01 Harkins A 07/07/2018 50mcg/0.5ML dose now and repeat MD Ester Suspension Rec 2nd dose after 2-6 months. Icaps Areds 2 Unknown 05/31/2017 2 Capsules Amlodipine Besylate once daily I10 Mikalusele, 05/31/2003 MD Red 5mg Tablets Rosuvastatin Calcium once daily I25.10 Mauser, 05/31/2003 MD Red 5mg Tablets E78.2 Coq-10 200mg once daily Unknown 05/31/2003 Capsules Cpap G47.33 Unknown 05/31/2003 Tamsulosin HCL once daily N40.1 Juan Burger MD 05/31/1999 0.4mg Capsules Viagra 100mg As needed F52.21 Unknown 05/31/1999 Tablets Aspirin Adult Low Strength once daily I25.10 Unknown 05/31/[address] History Medications Pepcid 20mg twice daily K21.9 Unknown 05/31/2009 - Tablets Immunizations CPT Code Status Date Vaccine Lot # [id number] Given 02/18/2018 Influenza Virus Vaccine, Quadrivalent ([id number]), Derived From Cell 39940 Given 02/18/2018 Influenza Vaccine Quadrivalent Preser/Antibiotic Free [place] Use [address]696 Given 03/02/2017 Influenza Vaccine Quadrivalent Preser/Antibiotic Free Im Use 75839 Given 09/10/2015 Pneumococcal Vaccine 2Yrs Or Older 97033 Given 11/01/2014 Tdap-Tetanus, Diphtheria Toxoids/Acellular Pertussis Vaccine 7+ 08721 Given 08/07/2013 Pneumococcal Vaccine 2Yrs Or Older 44332 Given 07/07/2006 Zoster Shingles Vaccine For Subcutaneous Injection Vital Signs Date Vital Result Comment 12/21/2018 2:23pm Body Temperature 98.2 F 07/07/2018 10:54am Body Temperature 97.8 F O2 % BldC Oximetry 99 % Heart Rate 65 /min BP Systolic 136 mmHg BP Diastolic 80 mmHg BMI (Body Mass Index) 26.8 kg/m2 Weight 154.00 lb Height 63.50 inches 5'3.50" 12/13/2017 1:45pm Heart Rate 64 /min BP Systolic 140 mmHg BP Diastolic 75 mmHg 10/12/2017 11:42am Heart Rate 60 /min BP Systolic 130 mmHg BP Diastolic 80 mmHg Weight 148.00 lb 07/15/2017 9:36am Heart Rate 66 /min BP Systolic 170 mmHg BP Diastolic 90 mmHg Weight 157.00 lb 06/02/2017 2:33pm Body Temperature 98.2 F O2 % BldC Oximetry 97 % Heart Rate 74 /min BP Systolic 165 mmHg BP Diastolic 90 mmHg BP Systolic Recheck 150 mmHg BP Diastolic Recheck 85 mmHg BMI (Body Mass Index) 27.3 kg/m2 Weight 158.00 lb Height 63.75 inches 5'3.75" 12/19/2013 4:16pm Ejection Fraction 53% ECHO Results Test Date Facility Test Result H/L Range Note Poc Urinalysis 12/06/2018 [facility] Poc Glucose, [place] [address] Urine [phone] Poc Bilirubin, Urine Negative Negative Poc Ketone, Urine Trace Abnormal Negative Poc Specific Udall, Urine 1.010 N 1.010-1.030 Poc Blood, Urine Trace-lysed Abnormal Negative Poc pH, Urine 6.0 N 5-9 Poc Protein, Urine Negative Negative Poc Urobilinogen, Urine 0.2 Negative Poc Nitrite, Urine Negative Negative Poc Leukocytes, Urine Negative Negative Poc Color, Urine Yellow Poc Clarity, Urine Clear 1 CBC Auto Diff 10/07/2018 [facility] White Blood 3.8 10^3/uL N 3.5-10.8 [place] [address] Count [phone] Red Blood Count 4.49 10^6/uL N 4.18-5.48 Hemoglobin 13.7 g/dL Low 14.0-18.0 Hematocrit 41 % Low 42-52 Mean Corpuscular Volume 92 fL N 80-94 Mean Corpuscular Hemoglobin 30 pg N 27-31 Mean Corpuscular HGB Conc 33 g/dL N 31-36 Red Cell Distribution Width 14 % N 10.5-15 Platelet Count 228 10^3/uL N 150-450 Mean Platelet Volume 8.6 fL N 7.4-10.4 Abs Neutrophils 2.0 10^3/uL N 1.5-7.7 Abs Lymphocytes 1.3 10^3/uL N 1.0-4.8 Abs Monocytes 0.5 10^3/uL N 0-0.8 Abs Eosinophils 0.0 10^3/uL N 0-0.6 Abs Basophils 0.0 10^3/uL N 0-0.2 Abs Nucleated RBC 0.0 10^3/uL Granulocyte % 53.3 % Lymphocyte % 33.2 % Monocyte % 12.3 % Eosinophil % 0.7 % Basophil % 0.5 % Nucleated Red Blood Cells % 0.2 Laboratory test 10/07/2018 [facility] Ferritin 127.9 ng/mL N 24-336 [place] [address] [phone] TSH (Thyroid Stim Horm) 2.10 mcIU/mL N 0.34-5.60 Laboratory 09/19/2018 [facility] PSA Diagnostic 4.101 High 0- 4.0 2 [place] [address] ng/mL [phone] Stool Occult 08/22/2018 [facility] Stool Occult SEE RESULT 3, 4 Blood, [place] [address] Blood, Screen BELOW [phone] CBC Auto Diff 08/02/2018 [facility] White Blood 5.6 N 3.5- 10.8 [place] [address] Count 10^3/uL [phone] Red Blood Count 4.44 10^6/uL N 4.00-5.40 Hemoglobin 13.5 g/dL Low 14.0-18.0 Hematocrit 41 % Low 42-52 Mean Corpuscular Volume 92 fL N 80-94 Mean Corpuscular Hemoglobin 30 pg N 27-31 Mean Corpuscular HGB Conc 33 g/dL N 31-36 Red Cell Distribution Width 13 % N 10.5-15 Platelet Count 225 10^3/uL N 150-450 Mean Platelet Volume 8.5 fL N 7.4-10.4 Abs Neutrophils 3.2 10^3/uL N 1.5-7.7 Abs Lymphocytes 1.8 10^3/uL N 1.0-4.8 Abs Monocytes 0.6 10^3/uL N 0-0.8 Abs Eosinophils 0 10^3/uL N 0-0.6 Abs Basophils 0 10^3/uL N 0-0.2 Abs Nucleated RBC 0 10^3/uL Granulocyte % 56.8 % Lymphocyte % 32.0 % Monocyte % 10.6 % Eosinophil % 0.4 % Basophil % 0.2 % Nucleated Red Blood Cells % 0 Laboratory test 08/02/2018 [facility] Ferritin 154.0 ng/mL N 24-336 [place] [address] [phone] Iron & Iron Binding 08/02/2018 [facility] Iron 105 g/dL N 50 -212 [place] [address] [phone] Unsaturated Iron Binding < 335 g/dL Total Iron Binding Capacity 350 g/dL N 250-450 Transferrin 250 mg/dL N 203-362 % Iron Saturation 30 % N 15-55 Laboratory test 08/02/2018 [facility] Vitamin B12 335 pg/mL N 180-914 5 [place] [address] [phone] Xray 07/01/2018 [facility] Ultrasound, Stable [address] Thyroid; [place] [address] Tissues [phone] CBC No Diff 06/30/2018 [facility] White Blood 4.5 10^3/uL N 3.5-10.8 [place] [address] Count [phone] Red Blood Count 4.54 10^6/uL N 4.00-5.40 Hemoglobin 13.8 g/dL Low 14.0-18.0 Hematocrit 41 % Low 42-52 Mean Corpuscular Volume 90 fL N 80-94 Mean Corpuscular Hemoglobin 30 pg N 27-31 Mean Corpuscular HGB Conc 34 g/dL N 31-36 Red Cell Distribution Width 13 % N 10.5-15 Platelet Count 211 10^3/uL N 150-450 Mean Platelet Volume 8.0 fL N 7.4-10.4 Comp Metabolic Panel 06/30/2018 [facility] Sodium 141 mmol/L N 135-145 [place] [address] [phone] Potassium 4.9 mmol/L N 3.5-5.0 Chloride 108 mmol/L N 101-111 Co2 Carbon Dioxide 30 mmol/L N 22-32 Anion Gap 3 mmol/L N 2-11 Glucose 115 mg/dL High 70-100 Blood Urea Nitrogen 23 mg/dL N 6-24 Creatinine 0.85 mg/dL N 0.67-1.17 BUN/Creatinine Ratio 27.1 High 8-20 Calcium 9.5 mg/dL N 8.6-10.3 Total Protein 7.0 g/dL N 6.4-8.9 Albumin 4.5 g/dL N 3.2-5.2 Globulin 2.5 g/dL N 2-4 Albumin/Globulin Ratio 1.8 N 1-3 Total Bilirubin 0.40 mg/dL N 0.2-1.0 Alkaline Phosphatase 67 U/L N 34-104 Alt 18 U/L N 7-52 Ast 14 U/L N 13-39 Egfr Non- 87.9 >60 Egfr 106.3 >60 6 Lipid Profile 06/30/2018 [facility] Triglycerides 59 mg/dL 7 (Trig/Chol/HDL) [place] [address] [phone] Cholesterol 124 mg/dL 8 HDL Cholesterol 41.1 mg/dL 9 LDL Cholesterol 71 mg/dL 10 Laboratory 06/30/2018 [facility] TSH (Thyroid Stim 2.88 N 0.34 -5.60 [place] [address] Horm) mcIU/mL [phone] Laboratory 03/22/2018 [facility] PSA Diagnostic 5.232 High 0- 4.0 11 [place] [address] ng/mL [phone] Xray 12/23/2017 [facility] Ultrasound, Nodules [facility] [address] [facility] Thyroid; [place] [address] Tissues [phone] Laboratory 12/13/2017 [facility] Thyroperoxidase 0.27 N <9 [place] [address] AB IU/mL [phone] Thyroglobulin Antibody <1.8 IU/mL <4.0 12 Laboratory test 12/13/2017 [facility] TSH (Thyroid 0.97 mcIU/mL N 0.34-5.60 [place] [address] Stim Horm) [phone] T3 Free 3.20 pg/mL N 2.5-3.9 Free T4 (Free Thyroxine) 0.87 ng/dL N 0.61-1.12 Laboratory test 11/03/2017 [facility] PSA Screening 6.568 High 0-4.0 13 [place] [address] ng/mL [phone] Laboratory test 09/29/2017 [facility] Hemoglobin A1c 5.9 % High 4.0-5.6 14 [place] [address] (Glyco HGB) [phone] Insulin 3.7 mcIU/mL N 2.0-16.0 Basic Metabolic Panel 09/29/2017 [facility] Sodium 142 mmol/L N 139-145 [place] [address] [phone] Potassium 4.4 mmol/L N 3.5-5.0 Chloride 110 mmol/L N 101-111 Co2 Carbon Dioxide 26 mmol/L N 22-32 Anion Gap 6 mmol/L N 2-11 Glucose 108 mg/dL High 70-100 Blood Urea Nitrogen 21 mg/dL N 6-24 Creatinine 0.83 mg/dL N 0.67-1.17 BUN/Creatinine Ratio 25.3 High 8-20 Calcium 9.1 mg/dL N 8.6-10.3 Egfr Non- 90.6 >60 Egfr 116.5 >60 15 CBC No Diff 06/04/2017 [facility] White Blood 4.5 10^3/uL N 3.5-10.8 [place] [address] Count [phone] Red Blood Count 4.74 10^6/uL N 4.0-5.4 Hemoglobin 14.5 g/dL N 14.0-18.0 Hematocrit 44 % N 42-52 Mean Corpuscular Volume 92 fL N 80-94 Mean Corpuscular Hemoglobin 31 pg N 27-31 Mean Corpuscular HGB Conc 33 g/dL N 31-36 Red Cell Distribution Width 14 % N 10.5-15 Platelet Count 240 10^3/uL N 150-450 Mean Platelet Volume 9 um3 N 7.4-10.4 Comp Metabolic Panel 06/04/2017 [facility] Sodium 135 mmol/L N 133-145 [place] [address] [phone] Potassium 4.4 mmol/L N 3.5-5.0 Chloride 103 mmol/L N 101-111 Co2 Carbon Dioxide 28 mmol/L N 22-32 Anion Gap 4 mmol/L N 2-11 Glucose 110 mg/dL High 70-100 Blood Urea Nitrogen 17 mg/dL N 6-24 Creatinine 0.94 mg/dL N 0.67-1.17 BUN/Creatinine Ratio 18.1 N 8-20 Calcium 9.5 mg/dL N 8.6-10.3 Total Protein 7.3 g/dL N 6.4-8.9 Albumin 4.4 g/dL N 3.2-5.2 Globulin 2.9 g/dL N 2-4 Albumin/Globulin Ratio 1.5 N 1-3 Total Bilirubin 0.60 mg/dL N 0.2-1.0 Alkaline Phosphatase 65 U/L N 34-104 Alt 15 U/L N 7-52 Ast 14 U/L N 13-39 Egfr Non- 78.4 >60 Egfr 100.9 >60 16 Laboratory test 06/04/2017 [facility] Creatine 127 U/L N 10- 223 17 [place] [address] Kinase(CK) [phone] Lipid Profile 06/04/2017 [facility] Triglycerides 63 mg/dL < 150 18 (Trig/Chol/HDL) [place] [address] [phone] Cholesterol 126 mg/dL <200 19 HDL Cholesterol 46.5 mg/dL >40 20 LDL Cholesterol 67 mg/dL <100 21 Laboratory test 06/04/2017 [facility] Hemoglobin A1c 6.2 % High 4.0-5.6 22 [place] [address] (Glyco HGB) [phone] Laboratory test 05/03/2017 [facility] PSA Screening 5.994 High 0-4.0 23 [place] [address] ng/mL [phone] 1 Filter Bed Placer: [id number] 2 Serum levels of PSA measured using the [employer] DXI Hybritech immunoassay should not be interpreted as absolute evidence of the presence or absence of disease. The PSA value should be used in conjunction with other pertinent clinical diagnostic procedures. The values obtained with different assay methods or kits cannot be used interchangeably. 3 [id number] 4 SEE RESULT BELOW Name: MÓNICA MELISSA : [address]: Shahana Norman MD Acct: [id number] Unit: [id number] AGE: 77 Location: [facility] Re08/22/18 SEX: M Status: REG REF SPEC: [id number] FEDER[place]: 08/22/18-[address]: Shahana Norman MD REQ: [id number] RECD: 08/22/18 STATUS: COMP _ SOURCE: STOOL SPDESC: ORDERED: Occult Bl, Scn COMMENTS: [id number] Procedure Result Reported Site Stool Occult Blood [...] . END OF REPORT DEPARTMENT OF PATHOLOGY, [address] [place] [address] Irving Ortiz M.D. Director [facility] # [id number] 5 Normal Range 180 to 914 Indeterminate Range 145 to 180 Deficient Range <145 6 Because ethnic data is not always readily [...] 15-29 5 Kidney failure <15 (or dialysis) 7 Desirable: <150 Borderline High: 150-199 High: 200-499 Very High: >500 8 Desirable: <200 Borderline High: 200-239 High: >239 9 Low: <40 Desirable: 40-60 High: >60 10 Desirable: <100 Near Optimal: 100-129 Borderline High: 130-159 High: 160-189 Very High: >189 11 Serum levels of PSA measured using the [employer] DXI Hybritech immunoassay should not be interpreted as absolute evidence of the presence or absence of disease. The PSA value should be used in conjunction with other pertinent clinical diagnostic procedures. The values obtained with different assay methods or kits cannot be used interchangeably. 12 ADDITIONAL INFORMATION The thyroglobulin antibody testing method is an immunoenzymatic assay manufactured by [employer] and performed on the [employer] DXI 800. Values obtained from different assay methods or kits may be different and cannot be used interchangeably. The results cannot be interpreted as absolute evidence for the presence or absence of malignant disease. Test Performed by: [facility] [address] [place] [address] 13 Serum levels of PSA measured using the [employer] DXI Hybritech immunoassay should not be interpreted as absolute evidence of the presence or absence of disease. The PSA value should be used in conjunction with other pertinent clinical diagnostic procedures. The values obtained with different assay methods or kits cannot be used interchangeably. 14 Therapeutic target for the treatment of diabetes mellitus patients is <7% HBA1C, and in selective patients <6.0%. Please refer to [place] [employer] diabetic care guidelines for further information. 15 Because ethnic data is not always readily [...] 15-29 5 Kidney failure <15 (or dialysis) 16 Because ethnic data is not always readily [...] 15-29 5 Kidney failure <15 (or dialysis) 17 FASTING 18 Desirable: <150 Borderline High: 150-199 High: 200-499 Very High: >500 19 Desirable: <200 Borderline High: 200-239 High: >239 20 Low: <40 Desirable: 40-60 High: >60 21 Desirable: <100 Near Optimal: 100-129 Borderline High: 130-159 High: 160-189 Very High: >189 22 Therapeutic target for the treatment of diabetes mellitus patients is <7% HBA1C, and in selective patients <6.0%. Please refer to [place] [employer] diabetic care guidelines for further information. 23 Serum levels of PSA measured using the [employer] DXI Hybritech immunoassay should not be interpreted as absolute evidence of the presence or absence of disease. The PSA value should be used in conjunction with other pertinent clinical diagnostic procedures. The values obtained with different assay methods or kits cannot be used interchangeably. Procedures Date Code Description Status 01/04/2017 [id number] Colonoscopy Completed 09/18/2016 [id number] Colonoscopy Completed 01/06/2007 [id number] Colonoscopy Completed Encounters Type Date Location Provider Dx Diagnosis Office Visit 12/21/2018 Main Office Shahana Arshad B02.9 Zoster without 2:20p MD Ester complications Office Visit 07/07/2018 Main Office Shahana Arshad Z00.01 Encounter for general 11:00a MD Ester adult medical exam w abnormal findings E04.2 Nontoxic multinodular goiter I10 Essential (primary) hypertension R73.01 Impaired fasting glucose I25.10 Athscl heart disease of [place] coronary artery w/o ang pctrs E78.2 Mixed hyperlipidemia D64.9 Anemia, unspecified Office Visit 12/27/2017 11:40a Main Office Shahana Arshad E04.2 Nontoxic MD Ester multinodular goiter Office Visit 12/13/2017 1:20p Main Office Shahana Arshad E04.1 Nontoxic single MD Ester thyroid nodule M15.0 Primary generalized (osteo)arthritis I10 Essential (primary) hypertension Office Visit 11/17/2017 3:40p Main Office Shahana Arshad D48.5 Neoplasm of MD Ester uncertain behavior of skin Office Visit 10/12/2017 11:40a Main Office Shahana Arshad R73.01 Impaired fasting MD Ester glucose I10 Essential (primary) hypertension I25.10 Athscl heart disease of [place] coronary artery w/o ang pctrs D48.5 Neoplasm of uncertain behavior of skin Office Visit 07/15/2017 9:40a Main Office Shahana Arshad I10 Essential ( primary) MD Ester hypertension R73.01 Impaired fasting glucose I25.10 Athscl heart disease of [place] coronary artery w/o marian pctrs Office Visit 06/02/2017 2:20p Main Office Shahana Arshad Z00.01 Encounter for MD Ester general adult medical exam w abnormal findings I25.10 Athscl heart disease of [place] coronary artery w/o ang pctrs E78.2 Mixed hyperlipidemia I10 Essential (primary) hypertension N40.1 Benign prostatic hyperplasia with lower urinary tract symp F52.21 Male erectile disorder G47.33 Obstructive sleep apnea (adult) (pediatric) K21.9 Gastro-esophageal reflux disease without esophagitis R73.01 Impaired fasting glucose Plan of Treatment Future Appointment(s):01/04/2019 10:00 am - Shahana Norman MD at Main [id number]/21/2018 - Shahana Norman MDB02.9 Zoster without complicationsComments:Treatment options with potential risks, general precautions, follow up recommendations, and alternative treatment options discussed with patient in detail. Patient verbalized understanding. Medications related potential side effects, general precautions, follow up recommendations discussed with patient in detail. Patient verbalized understanding. Lifestyle and dietary modifications advised.
--- OUTSIDE RECORDS SUMMARY | 2019-01-13 15:15 | XMS REPORT | Continuity of Care Document ---
:1940 External Reference #:[id number] Author Name Marcelino Palacios, OD Address [address] [place] [address] Problems Active Problems Provider Date Lens Replaced By Other Means Marcelino Philip O.D. Onset: 05/16/2014 Presbyopia Marcelino Philip O.D. Onset: 05/16/2014 Tear film insufficiency Marcelino Philip O.D. Onset: 05/16/2014 Social History Type Date Description Comments Sex Unknown ETOH Use Denies alcohol use Tobacco Use Start: Unknown End: Unknown Patient is a former smoker Smoking Status Reviewed: 01/03/19 Patient is a former smoker Allergies, Adverse Reactions, Alerts Description No Known Drug Allergies Medications Active Medications SIG Qnty Indications Ordering Provider Date Tamsulosin HCL Unknown 0.4mg Capsules Amlodipine Besylate Unknown 5mg Tablets Crestor Unknown 10mg Tablets Viagra Unknown 100mg Tablets Gabapentin MD Ester, 300mg Harkins Capsules Aspirin 81 Low Dose Unknown 81mg Chewtabs Co Q10 1 by mouth every Unknown 200mg Capsules day pt is not currently taking Immunizations Description No Information Available Vital Signs Date Vital Result Comment 07/05/2018 11:42am Intraocular Pressure Right Eye 16 mmHg Intraocular Pressure Left Eye 16 mmHg 03/03/2018 9:07am Intraocular Pressure Right Eye 17 mmHg Intraocular Pressure Left Eye 17 mmHg Cornea Thickness Left Eye 594 m Cornea Thickness Right Eye 597 m Pachymetry adjusted IOP Right Eye -3 Pachymetry adjusted IOP Left Eye -4 Results Description No Information Available Procedures Description No Information Available Medical Devices Description No Information Available Encounters Description No Information Available Assessments Date Code Description Provider 01/04/2019 H40.013 Open angle with borderline findings, low risk, Marcelino Palacios, OD bilateral 01/04/2019 H35.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
== END 2019-01-13 11:48 | disposition home or self-care (01) ==
LOC: UCEAST 10:24
DX: T16.2XXA Foreign body in left ear, initial encounter (principal); X58.XXXA Exposure to other specified factors, initial encounter; Y92.9 Unspecified place or not applicable; Z79.82 Long term (current) use of aspirin; Z87.891 Personal history of nicotine dependence
CPT/HCPCS: 69200; 99211; G0463